=== PATIENT | female | born 1985 | race Caucasian/White ===

== ENCOUNTER → 2020-05-12 | Outpatient (CLI) | payer OTHER ==
[~2020-05-12] MED LIST: CIPR500 PO; CODACE30 PO; CYCL10 PO; ERYES400 PO; HYDACE5 PO; MEDR10 PO; METR500 PO; MULVITMINE; NAPR550 PO; NITR100CA PO; ONDA4ODT MM; OXYACE5T PO; PRED20 PO; PREN-16 PO; PROM25 PO; RXOXYACE PO; TOPI50 PO; VITB100
[2020-05-15 15:08] LABS: HPV 16 Negative (Negative); HPV 18 Negative (Negative); HPV OTHER HR TYPES Negative (Negative)
== END | disposition home or self-care (01) ==
LOC: LAB SHORT 13:07 → LAB 13:07
PROVIDERS: Obstetrics & Gynecology
DX: Z01.419 Encounter for gynecological examination (general) (routine) without abnormal findings (principal)
CPT/HCPCS: 87624; G0123